=== PATIENT | male | born 1990 | race Caucasian/White ===

== ENCOUNTER 2019-07-10 01:26 | Observation (INO) ==
[2019-07-10] MEDS ORDERED: Ondansetron ODT 4 MG TAB.RAPDIS SL ONE (01:30)
[2019-07-10] MEDS ORDERED: *HR* Promethazine 25 MG/ML VIAL IVP ONE (01:46)
[2019-07-10] MEDS ORDERED: 0.9 % Sodium Chloride 1,000 ML ONE (01:51)
[2019-07-10] MEDS: 0.9 % Sodium Chloride 1,000 ML IVC SCH ×4 (01:54→12:46)
[2019-07-10 01:58] LABS: Basophils % 0.2 %; Eosinophils % 0.1 %; Hematocrit 46.7 % (37.5-50.1); Hemoglobin 15.8 g/dL (12.9-16.9); Lymphocytes % 4.7 %; Mean Corpuscular HGB Conc 33.8 g/dL (31.6-35.5); Mean Corpuscular Hemoglobin 27.8 pg (28.0-33.3); Mean Corpuscular Volume 82.1 fL (83.0-100.0); Mean Platelet Volume 9.8 fL (9.4-12.4); Monocytes # 0.7 K/mcL (0.0-1.3); Monocytes % 3.9 %; Neutrophils # 16.2 K/mcL (1.6-8.9); Platelet Count 242 K/mcL (140-400); Red Blood Count 5.69 M/mcL (4.19-5.50); Red Cell Distribution Width 13.7 % (11.5-14.5); Segmented Neutrophils % 90.1 %
[2019-07-10 01:59] LABS: Lymphocytes # 0.9 K/mcL (0.6-4.6)
[2019-07-10] MEDS ORDERED: levoFLOXacin 750 MG/150 ML 750 MG/150 ML BAG IVPB ONE (01:59)
[2019-07-10] MEDS ORDERED: Metoclopramide 10 MG/2 ML VIAL IVP ONE (02:10)
[2019-07-10] MEDS ORDERED: Ibuprofen 200 MG TABLET PO ONE (02:10)
[2019-07-10 02:16] LABS: Alanine Aminotransferase 19 Units/L (7-52); Albumin 4.5 g/dL (3.5-5.7); Albumin/Globulin Ratio 1.3 (1.1-2.2); Alkaline Phosphatase 89 Units/L (34-104); Aspartate Amino Transferase 15 Units/L (13-39); BUN/Creatinine Ratio 15 (6-26); Bilirubin,Direct 0.3 mg/dL (0.0-0.2); Bilirubin,Indirect 0.9 mg/dL (0.0-1.0); Bilirubin,Total 1.2 mg/dL (0.3-1.0); Blood Urea Nitrogen 22 mg/dL (6-20); Carbon Dioxide 23 mEq/L (23-29); Chloride 92 mEq/L (98-107); Globulin 3.4 g/dL (2.4-3.5); Glucose 119 mg/dL (70-105); Osmolality,Calculated 270 (280-300); Potassium 3.1 mEq/L (3.5-5.1); Sodium 128 mEq/L (136-145); Total Protein 7.9 g/dL (6.4-8.9); eGFR For African Americans > 60 (> 60); eGFR For Non-African Americans 55 (> 60)
[2019-07-10] MEDS ORDERED: 0.9 % Sodium Chloride 1,000 ML IVC ONE ×2 (03:20→04:41)
[2019-07-10] MEDS ORDERED: Naloxone 0.4 MG/ML INJ IVP PRN (04:41)
[2019-07-10] MEDS ORDERED: Ibuprofen 400 MG TABLET PO PRN (04:41)
[2019-07-10] MEDS ORDERED: Ondansetron 4 MG/2 ML VIAL IVP PRN ×2 (04:41→05:10)
[2019-07-10] MEDS ORDERED: Acetaminophen 325 MG TABLET PO PRN (04:41)
[2019-07-10] MEDS ORDERED: *HR* Promethazine 25 MG/ML VIAL IVP PRN (04:41)
[2019-07-10] MEDS ORDERED: *HR* OxyCODONE/APAP 5/325 TABLET PO PRN (05:10)
[2019-07-10] MEDS: Azithromycin 250 MG TABLET PO SCH (08:01)
[2019-07-10 08:12] LABS: Bilirubin,Urine Negative (Negative); Blood,Urine Negative (Negative); Clarity,Urine Clear (Clear); Color,Urine Yellow (Yellow); Glucose,Urine (UA) Normal (Normal); Ketones,Urine 15 mg/dL (Negative); Leukocyte Esterase,Urine Negative (Negative); Nitrite,Urine Negative (Negative); Protein,Urine Negative (Neg-Trace); Urobilinogen,Urine Normal (Normal)
[2019-07-10] MEDS: Ipratropium/Albuterol Neb 3 ML IH SCH ×3 (12:59→20:15)
[2019-07-10 15:35] LABS: Hematocrit 38.9 % (37.5-50.1); Hemoglobin 12.9 g/dL (12.9-16.9); Mean Corpuscular HGB Conc 33.2 g/dL (31.6-35.5); Mean Corpuscular Hemoglobin 27.6 pg (28.0-33.3); Mean Corpuscular Volume 83.3 fL (83.0-100.0); Mean Platelet Volume 9.9 fL (9.4-12.4); Platelet Count 189 K/mcL (140-400); Red Blood Count 4.67 M/mcL (4.19-5.50); White Blood Count 16.2 K/mcL (4.3-11.1)
[2019-07-10] MEDS ORDERED: 0.9 % Sodium Chloride 1,000 ML IVC SCH (15:53)
[2019-07-10 16:08] LABS: BUN/Creatinine Ratio 16 (6-26); Blood Urea Nitrogen 16 mg/dL (6-20); Calcium 8.3 mg/dL (8.6-10.3); Carbon Dioxide 21 mEq/L (23-29); Chloride 104 mEq/L (98-107); Glucose 124 mg/dL (70-105); Magnesium 1.7 mg/dL (1.6-2.6); Osmolality,Calculated 275 (280-300); Potassium 3.4 mEq/L (3.5-5.1); Sodium 131 mEq/L (136-145); eGFR For African Americans > 60 (> 60); eGFR For Non-African Americans > 60 (> 60)
[2019-07-11] MEDS: Ipratropium/Albuterol Neb 3 ML IH SCH ×2 (03:53→11:37)
[2019-07-11 04:16] LABS: Basophils % 0.2 %; Eosinophils % 0.1 %; Hematocrit 38.8 % (37.5-50.1); Hemoglobin 12.8 g/dL (12.9-16.9); Lymphocytes # 1.5 K/mcL (0.6-4.6); Lymphocytes % 13.4 %; Mean Corpuscular Hemoglobin 27.5 pg (28.0-33.3); Mean Corpuscular Volume 83.3 fL (83.0-100.0); Monocytes # 0.6 K/mcL (0.0-1.3); Monocytes % 5.2 %; Neutrophils # 8.7 K/mcL (1.6-8.9); Platelet Count 189 K/mcL (140-400); Red Blood Count 4.66 M/mcL (4.19-5.50); Red Cell Distribution Width 14.1 % (11.5-14.5); Segmented Neutrophils % 80.1 %; White Blood Count 10.9 K/mcL (4.3-11.1)
[2019-07-11 04:34] LABS: Alanine Aminotransferase 15 Units/L (7-52); Albumin 3.4 g/dL (3.5-5.7); Albumin/Globulin Ratio 1.2 (1.1-2.2); Alkaline Phosphatase 60 Units/L (34-104); Aspartate Amino Transferase 12 Units/L (13-39); BUN/Creatinine Ratio 14 (6-26); Bilirubin,Total 0.4 mg/dL (0.3-1.0); Blood Urea Nitrogen 12 mg/dL (6-20); Calcium 8.6 mg/dL (8.6-10.3); Carbon Dioxide 20 mEq/L (23-29); Chloride 107 mEq/L (98-107); Globulin 2.9 g/dL (2.4-3.5); Glucose 98 mg/dL (70-105); Osmolality,Calculated 284 (280-300); Phosphorous 1.7 mg/dL (2.7-4.5); Potassium 3.3 mEq/L (3.5-5.1); Sodium 137 mEq/L (136-145); Total Protein 6.3 g/dL (6.4-8.9); eGFR For African Americans > 60 (> 60); eGFR For Non-African Americans > 60 (> 60)
[2019-07-11 06:56] VITALS: BP 125/76
[2019-07-11] MEDS ORDERED: levoFLOXacin 750 MG/150 ML 750 MG/150 ML BAG IVPB SCH (09:00)
[2019-07-11] MEDS: Azithromycin 250 MG TABLET PO SCH (09:43)
== END 2019-07-11 11:30 | disposition home or self-care (01) ==
LOC: INPGRE 01:26 → EMEROOGRE 01:26 → INPGRE 04:20
PROVIDERS: ADMIT Family Medicine; ATTEND Family Medicine